=== PATIENT | female | born 1950 | race Caucasian/White ===

== ENCOUNTER → 2016-12-28 | Outpatient (CLI) | payer MEDICARE, OTHER ==
[~2016-12-28] MED LIST: Carafate1 GM PO; LIPITOR20 MG PO; MEDROL DOSEPAK4 MG PO; OMEPRAZOLE D/R20 MG PO
[2016-12-28 14:04] LABS: BASO # 0.1 10*3/uL (0.0-0.1); BASO % 0.8 % (0.0-1.0); HEMATOCRIT 37.7 % (37.0-47.0); HEMOGLOBIN 12.3 g/dl (12.0-16.0); LYMPH # 1.9 10*3/uL (1.3-4.4); LYMPH % 31.2 % (27.0-41.0); MEAN CELL VOLUME 94.7 fl (81.0-99.0); MEAN CORPUSCULAR HGB 30.9 pg (27.0-31.0); MEAN CORPUSCULAR HGB CONC 32.6 g/dl (33.0-37.0); MONO # 0.6 10*3/uL (0.1-1.0); MONO % 10.2 % (3.0-9.0); NEUT # 3.6 10*3/uL (2.3-7.9); NEUT % 57.5 % (47.0-73.0); PLATELET COUNT AUTOMATED 253 10*3/uL (130-400); RED BLOOD COUNT 3.98 10*6/uL (4.10-5.10); RED CELL DISTRI WIDTH 12.2 % (0-14.5); WHITE BLOOD COUNT 6.2 10*3/uL (4.8-10.8)
[2016-12-28 14:32] LABS: ALBUMIN 3.3 gm/dl (3.1-4.5); BILIRUBIN, DIRECT 0.2 mg/dL (0.0-0.2); TOTAL PROTEIN 7.6 gm/dL (6.4-8.2)
== END | disposition home or self-care (01) ==
LOC: LAB 13:43
PROVIDERS: Specialist
DX: K83.1 Obstruction of bile duct (principal)

== ENCOUNTER → 2017-03-21 | Outpatient (CLI) | payer MEDICARE, OTHER ==
[2017-03-21 12:06] LABS: BASO % 0.6 % (0.0-1.0); EOS % 0.1 % (1.0-4.0); HEMATOCRIT 36.8 % (37.0-47.0); HEMOGLOBIN 11.8 g/dl (12.0-16.0); LYMPH % 29.7 % (27.0-41.0); MEAN CELL VOLUME 95.6 fl (81.0-99.0); MEAN CORPUSCULAR HGB 30.6 pg (27.0-31.0); MEAN CORPUSCULAR HGB CONC 32.1 g/dl (33.0-37.0); MEAN PLATELET VOLUME 9.7 fl (9.6-12.3); MONO # 0.6 10*3/uL (0.1-1.0); MONO % 8.8 % (3.0-9.0); NEUT % 59.9 % (47.0-73.0); PLATELET COUNT AUTOMATED 320 10*3/uL (130-400); RED BLOOD COUNT 3.85 10*6/uL (4.10-5.10); RED CELL DISTRI WIDTH 13.2 % (0-14.5); WHITE BLOOD COUNT 6.7 10*3/uL (4.8-10.8)
[2017-03-21 12:35] LABS: ALKALINE PHOSPHATASE 311 U/L (45-117); BUN 11 mg/dl (7-24); CHLORIDE 103 mmol/L (98-107); CREATININE 0.69 mg/dL (0.55-1.02); POTASSIUM 3.4 mmol/L (3.5-5.1); SGOT/AST 28 IU/L (3-35); SGPT/ALT 47 U/L (12-78); SODIUM 139 mmol/L (136-145); TOTAL PROTEIN 7.3 gm/dL (6.4-8.2)
== END | disposition home or self-care (01) ==
LOC: LAB 11:44
PROVIDERS: Specialist
DX: K83.1 Obstruction of bile duct (principal)

== ENCOUNTER → 2017-04-26 | Outpatient (CLI) | payer MEDICARE, OTHER ==
[~2017-04-26] MED LIST changes: +ACTIGALL300 MG PO; +CELEXA20 MG PO; +PANTOPRAZOLE SO40 MG PO; +ZESTORETIC 10-1 EACH PO
--- NOTE | ~2017-04-26 | ST ---
[place], [place] EXERCISE STRESS TEST REPORT NAME: ALISON MATAMOROS UNIT #: [id number] ROOM: DOCTOR: MELONIE MARKHAM MD BIRTHDATE: [birth year] DOS: 04/26/2017 [facility] Baseline cardiogram normal sinus rhythm with mild ST elevation concave in the inferior leads, 0.4 mg of Lexiscan, duration of 10 seconds. No new EKG changes. The patient had no chest discomfort. Blood pressure and heart rate response was normal. Nuclear images will be reported separately. MELONIE MARKHAM MD CM:STRESS:EXERCISE STRESS TEST REPORT [id number] MELONIE MARKHAM MD
== END | disposition home or self-care (01) ==
LOC: CARD 00:54
DX: Z01.818 Encounter for other preprocedural examination (principal); R06.02 Shortness of breath

== ENCOUNTER → 2017-10-03 | Outpatient (CLI) | payer MEDICARE, OTHER ==
[2017-10-03 13:48] LABS: ALBUMIN 3.4 gm/dl (3.1-4.5); ALKALINE PHOSPHATASE 164 U/L (45-117); BILIRUBIN, DIRECT < 0.1 mg/dL (0.0-0.2); SGOT/AST 27 IU/L (3-35); SGPT/ALT 17 U/L (12-78); TOTAL PROTEIN 7.7 gm/dL (6.4-8.2)
== END | disposition home or self-care (01) ==
LOC: LAB 12:54
PROVIDERS: Physician Assistant Surgical
DX: K83.1 Obstruction of bile duct (principal)

== ENCOUNTER → 2017-11-04 | Outpatient (CLI) | payer MEDICARE, OTHER ==
[2017-11-04 11:38] LABS: BASO % 0.4 % (0.0-1.0); HEMATOCRIT 35.9 % (37.0-47.0); HEMOGLOBIN 11.6 g/dl (12.0-16.0); LYMPH # 1.7 10*3/uL (1.3-4.4); LYMPH % 24.1 % (27.0-41.0); MEAN CELL VOLUME 94.7 fl (81.0-99.0); MEAN CORPUSCULAR HGB 30.6 pg (27.0-31.0); MEAN CORPUSCULAR HGB CONC 32.3 g/dl (33.0-37.0); MEAN PLATELET VOLUME 9.7 fl (9.6-12.3); MONO # 0.4 10*3/uL (0.1-1.0); MONO % 5.2 % (3.0-9.0); PLATELET COUNT AUTOMATED 452 10*3/uL (130-400); RED BLOOD COUNT 3.79 10*6/uL (4.10-5.10); RED CELL DISTRI WIDTH 11.9 % (0-14.5); WHITE BLOOD COUNT 7.1 10*3/uL (4.8-10.8)
[2017-11-04 12:07] LABS: ALKALINE PHOSPHATASE 270 U/L (45-117); BUN 10 mg/dl (7-24); CHLORIDE 103 mmol/L (98-107); CREATININE 0.79 mg/dL (0.55-1.02); POTASSIUM 3.5 mmol/L (3.5-5.1); SGOT/AST 13 IU/L (3-35); SGPT/ALT 19 U/L (12-78); SODIUM 140 mmol/L (136-145); TOTAL PROTEIN 7.1 gm/dL (6.4-8.2)
== END | disposition home or self-care (01) ==
LOC: LAB 11:14
PROVIDERS: Physician Assistant Surgical
DX: K83.1 Obstruction of bile duct (principal)

== ENCOUNTER → 2018-04-21 | Outpatient (CLI) | payer MEDICARE, OTHER ==
[2018-04-21 14:58] LABS: BASO % 0.6 % (0.0-1.0); EOS % 0.2 % (1.0-4.0); HEMATOCRIT 40.9 % (37.0-47.0); HEMOGLOBIN 13.2 g/dl (12.0-16.0); LYMPH # 2.1 10*3/uL (1.3-4.4); LYMPH % 31.9 % (27.0-41.0); MEAN CELL VOLUME 98.1 fl (81.0-99.0); MEAN CORPUSCULAR HGB 31.7 pg (27.0-31.0); MEAN CORPUSCULAR HGB CONC 32.3 g/dl (33.0-37.0); MONO # 0.6 10*3/uL (0.1-1.0); MONO % 9.4 % (3.0-9.0); NEUT # 3.8 10*3/uL (2.3-7.9); NEUT % 57.6 % (47.0-73.0); PLATELET COUNT AUTOMATED 339 10*3/uL (130-400); RED BLOOD COUNT 4.17 10*6/uL (4.10-5.10); RED CELL DISTRI WIDTH 12.5 % (0-14.5); WHITE BLOOD COUNT 6.6 10*3/uL (4.8-10.8)
[2018-04-21 15:19] LABS: ALBUMIN 3.7 gm/dl (3.1-4.5); ALKALINE PHOSPHATASE 307 U/L (45-117); BUN 11 mg/dl (7-24); CHLORIDE 103 mmol/L (98-107); CREATININE 0.68 mg/dL (0.55-1.02); POTASSIUM 4.3 mmol/L (3.5-5.1); SGOT/AST 27 IU/L (3-35); SGPT/ALT 44 U/L (12-78); SODIUM 138 mmol/L (136-145); TOTAL PROTEIN 8.2 gm/dL (6.4-8.2)
[2018-04-22 08:07] LABS: HEPATITIS B SURFACE AG Negative (Negative); HEPATITIS C VIRUS ANTIBODY <0.1 s/co (0.0-0.9)
[2018-04-22 09:09] LABS: RHEUMATOID ARTHRITIS FACTOR >650.0 IU/mL (0.0-13.9)
[2018-04-22 21:07] LABS: CCP ANTIBODIES IGG/IGA >250 units (0-19)
[2018-04-25 07:07] LABS: TB1 Ag VALUE 0.02 IU/mL (.)
== END | disposition home or self-care (01) ==
LOC: LAB 13:31
PROVIDERS: Specialist
DX: M79.642 Pain in left hand (principal); M79.641 Pain in right hand; M79.672 Pain in left foot; M79.671 Pain in right foot; M06.4 Inflammatory polyarthropathy

== ENCOUNTER → 2019-02-01 | Outpatient (CLI) | payer MEDICARE, OTHER | END | disposition home or self-care (01) | LOC: RAD 01-19 13:30 | DX: E55.9 Vitamin D deficiency, unspecified (principal); M06.9 Rheumatoid arthritis, unspecified; Z78.0 Asymptomatic menopausal state; Z85.118 Personal history of other malignant neoplasm of bronchus and lung ==

== ENCOUNTER 2019-04-13 00:15 | Emergency (ER) | payer MEDICARE, OTHER ==
[~2019-04-13] VITALS: Ht 165.1 cm; Wt 72.6 kg
== END 2019-04-13 03:59 | disposition home or self-care (01) ==
LOC: ED 00:15
DX: B34.9 Viral infection, unspecified (principal); K21.9 Gastro-esophageal reflux disease without esophagitis; Z88.1 Allergy status to other antibiotic agents; Z88.8 Allergy status to other drugs, medicaments and biological substances; Z88.6 Allergy status to analgesic agent; Z88.7 Allergy status to serum and vaccine; Z79.899 Other long term (current) drug therapy; Z90.49 Acquired absence of other specified parts of digestive tract

== ENCOUNTER 2019-04-19 09:26 | Inpatient (IN) | payer MEDICARE, OTHER ==
[2019-04-19] VITALS (7 sets, daily range): BP systolic 101–130; BP diastolic 53–69
[~2019-04-19] VITALS: Ht 165.1 cm; Wt 74.8 kg
--- NOTE | 2019-04-19 10:52 | NUR ---
500ML NORMAL SALINE INFUSED. 500 IN.
[2019-04-19 10:53] LABS: HEMATOCRIT 35.4 % (37.0-47.0); HEMOGLOBIN 11.8 g/dl (12.0-16.0); MEAN CELL VOLUME 93.7 fl (81.0-99.0); MEAN CORPUSCULAR HGB 31.2 pg (27.0-31.0); MEAN CORPUSCULAR HGB CONC 33.3 g/dl (33.0-37.0); MEAN PLATELET VOLUME 9.6 fl (9.6-12.3); PLATELET COUNT AUTOMATED 289 10*3/uL (130-400); RED BLOOD COUNT 3.78 10*6/uL (4.10-5.10); RED CELL DISTRI WIDTH 11.8 % (0-14.5); WHITE BLOOD COUNT 14.5 10*3/uL (4.8-10.8)
[2019-04-19 11:02] LABS: ACT PARTIAL THROMBO TIME 25.1 SECONDS (20.0-32.1)
[2019-04-19 11:12] LABS: ALBUMIN 2.7 gm/dl (3.1-4.5); ALKALINE PHOSPHATASE 463 U/L (45-117); BUN 20 mg/dl (7-24); CHLORIDE 94 mmol/L (98-107); CREATININE 1.15 mg/dL (0.55-1.02); LIPASE 41 U/L (73-393); POTASSIUM 2.8 mmol/L (3.5-5.1); SGOT/AST 97 IU/L (3-35); SGPT/ALT 87 U/L (12-78); SODIUM 133 mmol/L (136-145); TOTAL PROTEIN 6.4 gm/dL (6.4-8.2)
[2019-04-19 11:14] LABS: TROPONIN I < 0.015 ng/ml (<0.045)
--- NOTE | 2019-04-19 11:17 | NUR ---
LACTIC ACID 2.9, PROVIDER MADE AWARE.
[2019-04-19 11:19] LABS: PLATELET SUFFICIENCY NORMAL (NORMAL); TOTAL CELLS COUNTED 100 #CELLS; TOXIC GRANULATION MODERATE; VACUOLATION OF NEUTROPHILS SLIGHT
--- NOTE | 2019-04-19 12:40 | NUR ---
REPORT GIVEN TO NARCISO TOWNSEND AT THIS TIME. NO CHANGE IN STATUS.
--- NOTE | 2019-04-19 12:45 | NUR ---
A 68, admitted to 4E, under the services of VINAYAK Smallwood MD with a diagnosis of severe sepsis,pneumonitis hypokalemia. Chief complaint is influenza. Patient arrived via bed from ER. Monitor applied. Initial assessment completed. Vital signs taken and recorded. VINAYAK SMALLWOOD MD notified of admission to the unit. Orders received. See assessment for past medical history, medications and allergies. Patient and/or family oriented to unit. [address] visitation policy reviewed. Clothing/patient valuable form completed. NARCISO LAIRD
--- NOTE | 2019-04-19 13:17 | NUR ---
Notified of lactic acid level. See labs. No new orders.
[2019-04-19] MEDS ORDERED: PLAQUENIL200 MG PO (13:57)
--- NOTE | 2019-04-19 13:59 | NUR ---
Spoke with pharmacist at [facility] to update med rec. Dr. Quiros notified of completion.
--- NOTE | 2019-04-19 16:10 | NUR ---
Dr. Lenz notified of lactic acid level. See labs. No new orders.
--- NOTE | 2019-04-19 18:10 | NUR ---
Notified of lactic acid level. See labs. No new orders.
[2019-04-19 21:50] LABS: BILIRUBIN 1+ (NEGATIVE); BLOOD TRACE-INTACT (NEGATIVE); CLARITY CLEAR (CLEAR); COLOR YELLOW (YELLOW); GLUCOSE NEGATIVE (NEGATIVE); KETONE NEGATIVE (NEGATIVE); LEUKO ESTERASE TRACE (NEGATIVE); NITRITE POSITIVE (NEGATIVE); UROBILINOGEN 0.2 E.U./dl (0.2-1.0)
[2019-04-19 21:58] LABS: BACTERIA 2+
[2019-04-19 21:59] LABS: EPITHELIAL CELLS 0-2
[2019-04-20] VITALS: BP 117/69
--- NOTE | 2019-04-20 00:01 | NUR ---
DR. GALLARDO NOTIFIED OF POS BC FOR GR NEG BACILLI.
[2019-04-20 06:31] LABS: HEMATOCRIT 29.5 % (37.0-47.0); MEAN CELL VOLUME 93.7 fl (81.0-99.0); MEAN CORPUSCULAR HGB 31.7 pg (27.0-31.0); MEAN CORPUSCULAR HGB CONC 33.9 g/dl (33.0-37.0); MEAN PLATELET VOLUME 10.3 fl (9.6-12.3); PLATELET COUNT AUTOMATED 236 10*3/uL (130-400); RED BLOOD COUNT 3.15 10*6/uL (4.10-5.10); RED CELL DISTRI WIDTH 12.2 % (0-14.5); WHITE BLOOD COUNT 27.8 10*3/uL (4.8-10.8)
[2019-04-20 06:47] LABS: ALBUMIN 2.3 gm/dl (3.1-4.5); BUN 16 mg/dl (7-24); CHLORIDE 105 mmol/L (98-107); CHOLESTEROL 133 mg/dL (<200); CREATININE 0.71 mg/dL (0.55-1.02); HDL CHOLESTEROL 11 mg/dl (40-60); LDL CHOLESTEROL 100 mg/dL (9-159); PHOSPHOROUS 2.1 mg/dL (2.5-4.9); POTASSIUM 3.4 mmol/L (3.5-5.1); SGOT/AST 59 IU/L (3-35); SGPT/ALT 71 U/L (12-78); SODIUM 137 mmol/L (136-145); TOTAL PROTEIN 5.7 gm/dL (6.4-8.2); TRIGLYCERIDES 112 mg/dl (<150); VLDL CHOLESTEROL 22 mg/dL (6-40)
[2019-04-20 06:53] LABS: ALKALINE PHOSPHATASE 285 U/L (45-117)
[2019-04-20 07:07] LABS: VITAMIN D, 25-HYDROXY 19.8 ng/mL (30-100)
[2019-04-20 07:16] LABS: TOTAL CELLS COUNTED 100 #CELLS
[2019-04-20 07:17] LABS: PLATELET SUFFICIENCY NORMAL (NORMAL); TOXIC GRANULATION SLIGHT
--- NOTE | 2019-04-20 09:00 | NUR ---
Rouge Sifter in to talk to patient. Patient states lives at home alone with her family checking in on her. There are 14 steps in the home. Physician: Dr. Wright [facility] Home health services: none Patient's level of ADLs: INDEPENDENT Patient has working utilities: yes DME: has everything she could need from her who 3 years ago Follow-up physician's appointment after d/c: she prefers to make her own follow up appt after discharge Does patient want to access PORTAL?: no Discharge plan discussed with patient. She lives at home alone with her family checking in on her. She does have a stair lift for the 14 steps if needed. Discussed home health care services and she denies any home needs at this time. When medically stable she will be discharged to home. Her step daughter or granddaughter will provide transportation on discharge. She is on rocephin, zithromax and solumedrol. BC show GNB. +UA, UC pending. MARCELA POWELL
[2019-04-20 10:09] VITALS: BP 118/68
--- NOTE | 2019-04-20 10:11 | NUR ---
Notified of patients c/o pain under right breast. Patient concerned that its her bile duct again. Physician to follow up at bedside.
[2019-04-20 12:00] VITALS: BP 137/69
--- NOTE | 2019-04-20 15:37 | NUR ---
Notified of lactic acid level. See labs. No new orders.
[2019-04-20 16:00] VITALS: BP 116/54; BP 124/71
--- NOTE | 2019-04-20 17:40 | NUR ---
Message left with answering service regarding consult for positive blood cultures.
--- NOTE | 2019-04-20 17:56 | NUR ---
Dr. Jacobs returned call. See new orders.
--- NOTE | 2019-04-20 18:50 | NUR ---
Notified Dr. Jacobs of patients allergy to Zosyn. See new orders.
[2019-04-20 20:00] VITALS: BP 138/70
[2019-04-21] VITALS: BP 138/76
--- NOTE | 2019-04-21 02:00 | NUR ---
24 HR chart check completed.
--- NOTE | 2019-04-21 04:55 | NUR ---
Patient sleeping. Respirations relaxed and easy. Siderails up . [place] on. VLADIMIR DUNHAM
[2019-04-21 07:10] LABS: HEMATOCRIT 31.4 % (37.0-47.0); HEMOGLOBIN 10.4 g/dl (12.0-16.0); MEAN CELL VOLUME 95.7 fl (81.0-99.0); MEAN CORPUSCULAR HGB 31.7 pg (27.0-31.0); MEAN CORPUSCULAR HGB CONC 33.1 g/dl (33.0-37.0); MEAN PLATELET VOLUME 10.8 fl (9.6-12.3); PLATELET COUNT AUTOMATED 237 10*3/uL (130-400); RED BLOOD COUNT 3.28 10*6/uL (4.10-5.10); RED CELL DISTRI WIDTH 12.3 % (0-14.5); WHITE BLOOD COUNT 22.2 10*3/uL (4.8-10.8)
[2019-04-21 07:37] LABS: BUN 17 mg/dl (7-24); CHLORIDE 105 mmol/L (98-107); SODIUM 136 mmol/L (136-145)
[2019-04-21 07:50] LABS: POTASSIUM 4.5 mmol/L (3.5-5.1)
[2019-04-21 08:00] VITALS: BP 135/78
[2019-04-21 08:14] LABS: PLATELET SUFFICIENCY NORMAL (NORMAL); TOTAL CELLS COUNTED 100 #CELLS
[2019-04-21 12:00] VITALS: BP 125/84
[2019-04-21 16:00] VITALS: BP 153/98
--- NOTE | 2019-04-21 18:38 | NUR ---
CALLED DR. NUGENT TO INFORM HIM OF ID'S RECOMMENDATION WITH NO ANSWER. MESSAGE LEFT TO RETURN CALL.
--- NOTE | 2019-04-21 19:30 | NUR ---
IN TO SEE PT. ASSESSMENT COMPLETED AT THIS TIME. PT STATED ALL HER CONCERNS WITH ME FROM THE RESULTS OF HER CT. ANSWERED THE PTS QUESTIONS AND CONERNS BEST I COULD. PT HAD NO COMPLAINTS AND STATED SHE DID NOT NEED ANYTHING AT THIS TIME. NO SIGNS OF DISTRESS NOTED. RESPIRATIONS EASY AND REGULAR. CALL LIGHT WITHIN REACH. WILL CONTINUE TO MONITOR.
[2019-04-21 20:00] VITALS: BP 139/68
--- NOTE | 2019-04-21 20:38 | NUR ---
NOTIFIED OF NEW CONSULT. NEW ORDERS RECEIVED. CALL IN THE AM WITH LAB RESULTS.
[2019-04-22] VITALS: BP 125/66
--- NOTE | 2019-04-22 02:22 | NUR ---
DR. NUGENT NOTIFIED OF POSITIVE AEROBIC BLOOD CULTURE FOR GRAM NEGATIVE BACILLI.
--- NOTE | 2019-04-22 02:54 | NUR ---
24 HR chart check completed.
--- NOTE | 2019-04-22 06:00 | NUR ---
PT TRANSPORTED TO 5TH FLOOR WITH ALL HER BELONGINGS AT THIS TIME. REPORT GIVEN TO NURSE KRISTIAN GUY.
[2019-04-22 07:43] LABS: ALBUMIN 2.8 gm/dl (3.1-4.5); BUN 14 mg/dl (7-24); CHLORIDE 102 mmol/L (98-107); CREATININE 0.64 mg/dL (0.55-1.02); POTASSIUM 3.9 mmol/L (3.5-5.1); SGOT/AST 13 IU/L (3-35); SGPT/ALT 48 U/L (12-78); SODIUM 133 mmol/L (136-145)
[2019-04-22 07:45] LABS: ALKALINE PHOSPHATASE 273 U/L (45-117); TOTAL PROTEIN 6.3 gm/dL (6.4-8.2)
[2019-04-22 08:00] VITALS: BP 150/72
--- NOTE | 2019-04-22 08:00 | NUR ---
PT SITTING UP IN BED. RESP-EASY AND REGULAR. NO C/O AT THIS TIME. CALL LIGHT IN REACH. SEE SHIFT ASSESSMENT.
[2019-04-22 08:36] LABS: HEMATOCRIT 34.2 % (37.0-47.0); HEMOGLOBIN 11.6 g/dl (12.0-16.0); MEAN CELL VOLUME 93.4 fl (81.0-99.0); MEAN CORPUSCULAR HGB 31.7 pg (27.0-31.0); MEAN CORPUSCULAR HGB CONC 33.9 g/dl (33.0-37.0); MEAN PLATELET VOLUME 10.7 fl (9.6-12.3); PLATELET COUNT AUTOMATED 279 10*3/uL (130-400); RED BLOOD COUNT 3.66 10*6/uL (4.10-5.10); RED CELL DISTRI WIDTH 12.4 % (0-14.5); WHITE BLOOD COUNT 14.4 10*3/uL (4.8-10.8)
[2019-04-22 09:17] LABS: PLATELET SUFFICIENCY NORMAL (NORMAL); TOTAL CELLS COUNTED 100 #CELLS
[2019-04-22 12:00] VITALS: BP 156/84
--- NOTE | 2019-04-22 12:45 | NUR ---
PT SITTING UP AT SIDE OF BED. TOLERATING IV ANTIBIOTIC. NO C/O AT THIS TIME. CALL LIGHT IN REACH.
[2019-04-22 16:00] VITALS: BP 139/65
--- NOTE | 2019-04-22 16:34 | NUR ---
PT SITTING UP IN BED. RESP-EASY AND REGULAR. NO C/O AT THIS TIME. CALL LIGHT IN REACH. SEE SHIFT ASSESSMENT.
--- NOTE | 2019-04-22 18:00 | NUR ---
AMBULATORY IN HALLWAYS. NO C/O AT THIS TIME.
--- NOTE | 2019-04-22 19:45 | NUR ---
PATIENT LAYING IN BED WATCHING TV. IV MERREM RUNNING PER ORDER. DENIES COMPLAINTS OF PAIN OR DISCOMFORT AT THIS TIME. RESPIRATIONS REGULAR AND NON-LABORED. LUNGS DIMINISHED. BS NORMACTIVE. WILL CONTINUE TO MONITOR. CALL LIGHT IN REACH.
[2019-04-22 20:00] VITALS: BP 146/74
[2019-04-23] VITALS: BP 150/81
[2019-04-23 08:00] VITALS: BP 126/60
--- NOTE | 2019-04-23 08:30 | NUR ---
PT SITTING UP AT SIDE OF BED. TOLERATED ROUTINE MEDS WITH NO PROBLEM. NO C/O AT THIS TIME. DR. BAKER CALLED ORDERS TAKEN AND REVIEWED. CALL LIGHT IN REACH. SEE SHIFT ASSESSMENT.
[2019-04-23 08:52] LABS: HEMATOCRIT 36.7 % (37.0-47.0); HEMOGLOBIN 12.4 g/dl (12.0-16.0); MEAN CELL VOLUME 93.6 fl (81.0-99.0); MEAN CORPUSCULAR HGB 31.6 pg (27.0-31.0); MEAN CORPUSCULAR HGB CONC 33.8 g/dl (33.0-37.0); MEAN PLATELET VOLUME 9.8 fl (9.6-12.3); PLATELET COUNT AUTOMATED 291 10*3/uL (130-400); RED BLOOD COUNT 3.92 10*6/uL (4.10-5.10); RED CELL DISTRI WIDTH 12.3 % (0-14.5); WHITE BLOOD COUNT 10.6 10*3/uL (4.8-10.8)
[2019-04-23 09:07] LABS: ALBUMIN 2.8 gm/dl (3.1-4.5); ALKALINE PHOSPHATASE 239 U/L (45-117); BUN 16 mg/dl (7-24); CHLORIDE 98 mmol/L (98-107); CREATININE 0.64 mg/dL (0.55-1.02); POTASSIUM 4.2 mmol/L (3.5-5.1); SGOT/AST 17 IU/L (3-35); SGPT/ALT 39 U/L (12-78); SODIUM 128 mmol/L (136-145); TOTAL PROTEIN 6.1 gm/dL (6.4-8.2)
[2019-04-23 09:14] LABS: PLATELET SUFFICIENCY NORMAL (NORMAL); TOTAL CELLS COUNTED 100 #CELLS
--- NOTE | 2019-04-23 10:30 | NUR ---
Public Speaking Instructor in to see patient. No new needs or request at this time. She denies any home needs. When medically stable she will be discharged to home. +BC. IV antibiotics. Dr. Griffin and ID consulted.
--- NOTE | 2019-04-23 10:37 | NUR ---
PT RESTING IN BED. NO C/O AT THIS TIME. CALL LIGHT IN REACH.
[2019-04-23 12:00] VITALS: BP 111/59
[2019-04-23 16:00] VITALS: BP 122/68
--- NOTE | 2019-04-23 16:00 | NUR ---
SITTING UP AT BEDSIDE TALKING ON CELL PHONE. PT. VOICES NO C/O AT THIS TIME; NO DISTRESS NOTED.
--- NOTE | 2019-04-23 18:00 | NUR ---
PT. VOICES NO C/O; CALL LIGHT WITHIN REACH.
[2019-04-23 20:00] VITALS: BP 129/63
--- NOTE | 2019-04-23 20:26 | NUR ---
PATIENT RESTING IN BED WATCHING TV. NS FLUIDS STARTED AT 50CC/HR PER DR. BERGER. PATIENT UPSET D/T NOT BEING ABLE TO BE DISCHARGED. IV MERREM STARTED AT THIS TIME. DENIES COMPLAINTS OF PAIN OR DISCOMFORT. RESPIRATIONS REGULAR AND NON-LABORED ON ROOM AIR. WILL CONTINUE TO MONITOR. CALL LIGHT IN REACH.
--- NOTE | 2019-04-23 20:38 | NUR ---
PT REFUSED BREATHING TREATMENT. INSTRUCTED ON USE OF FLUTTER VALVE. DEMONSTRATED PROPER USE AND GOOD EFFORT, TOLD TO USE 12 BREATHES EVERY HOUR WHILE AWAKE.
[2019-04-24] VITALS: BP 137/62
[2019-04-24 07:15] LABS: HEMATOCRIT 33.8 % (37.0-47.0); MEAN CELL VOLUME 94.4 fl (81.0-99.0); MEAN CORPUSCULAR HGB 30.7 pg (27.0-31.0); MEAN CORPUSCULAR HGB CONC 32.5 g/dl (33.0-37.0); PLATELET COUNT AUTOMATED 278 10*3/uL (130-400); RED BLOOD COUNT 3.58 10*6/uL (4.10-5.10); RED CELL DISTRI WIDTH 12.1 % (0-14.5); WHITE BLOOD COUNT 11.8 10*3/uL (4.8-10.8)
[2019-04-24 07:46] LABS: ALBUMIN 2.3 gm/dl (3.1-4.5); ALKALINE PHOSPHATASE 189 U/L (45-117); BUN 15 mg/dl (7-24); CHLORIDE 100 mmol/L (98-107); CREATININE 0.68 mg/dL (0.55-1.02); POTASSIUM 3.9 mmol/L (3.5-5.1); SGOT/AST 15 IU/L (3-35); SGPT/ALT 32 U/L (12-78); SODIUM 133 mmol/L (136-145); TOTAL PROTEIN 5.1 gm/dL (6.4-8.2)
[2019-04-24 08:00] VITALS: BP 134/69
--- NOTE | 2019-04-24 08:00 | NUR ---
SITTING UP AT SIDE OF BED. RESP-EASY AND REGULAR. IVF INFUSING WITH NO PROBLEM. CALL LIGHT IN REACH. SEE SHIFT ASSESSMENT.
[2019-04-24 08:44] LABS: PLATELET SUFFICIENCY NORMAL (NORMAL)
[2019-04-24 08:46] LABS: TOTAL CELLS COUNTED 100 #CELLS
--- NOTE | 2019-04-24 09:42 | NUR ---
CALLED DR. MURRAY MADE AWARE OF +BC.
--- NOTE | 2019-04-24 10:30 | NUR ---
Transportation Security Screener in to see patient. Pt states she is waiting to be discharged. She is refusing to have a scope done by Dr. Griffin and would like to see her routine physician in [place] regarding a scope. She states if she gets home and she develops pain she will go to [place] and will be able to see her normal physicians. When medically stable she will be discharged to home. She denies any home needs at this time.
[2019-04-24 12:00] VITALS: BP 123/66
--- NOTE | 2019-04-24 12:00 | NUR ---
TOLERATED ROUTINE MED WITH NO PROBLEM. NO C/O AT THIS TIME. CALL LIGHT IN REACH.
--- NOTE | 2019-04-24 14:51 | NUR ---
Admissions Supervisor in to see patient. She states she is now going to have the ERCP tomorrow as she has talked her physician in [place] and he states it would be a good idea to have it done at this time.
--- NOTE | 2019-04-24 15:43 | NUR ---
CALLED DR. BERGER MADE AWARE PT IS WILLING TO DO ERCP TOMORROW.
[2019-04-24 16:00] VITALS: BP 129/69
--- NOTE | 2019-04-24 17:00 | NUR ---
PT RESTING IN BED. NO C/O AT THIS TIME. CALL LIGHT IN REACH. SEE SHIFT ASSESSMENT.
--- NOTE | 2019-04-24 19:00 | NUR ---
PT UNHOOKED FROM IVF TO WALK HALLWAYS FOR A LITTLE BIT. NO C/O AT THIS TIME. CALL LIGHT IN REACH.
[2019-04-24 20:00] VITALS: BP 130/60
--- NOTE | 2019-04-24 21:30 | NUR ---
IV started left forearm with #22 angiocath after 1 attempts. The IV site was prepped with Chloraprep. Heparin lock attached. Sterile dressing applied. Patient tolerated precedure well. Procedure performed according to [facility] policy & procedure. LINH CURIEL
--- NOTE | 2019-04-24 22:35 | NUR ---
PT RESTING IN BED. NO C/O AT THIS TIME. IVF INFUSING WITHNO PROBLEM. CALL LIGHT IN REACH.
[2019-04-25] VITALS (9 sets, daily range): BP systolic 119–154; BP diastolic 59–81
[2019-04-25 07:07] LABS: ALBUMIN 2.5 gm/dl (3.1-4.5); BUN 12 mg/dl (7-24); CHLORIDE 101 mmol/L (98-107); CREATININE 0.69 mg/dL (0.55-1.02); PHOSPHOROUS 3.3 mg/dL (2.5-4.9); POTASSIUM 3.9 mmol/L (3.5-5.1); SODIUM 135 mmol/L (136-145)
[2019-04-25 07:13] LABS: HEMATOCRIT 35.4 % (37.0-47.0); HEMOGLOBIN 11.6 g/dl (12.0-16.0); MEAN CELL VOLUME 93.4 fl (81.0-99.0); MEAN CORPUSCULAR HGB 30.6 pg (27.0-31.0); MEAN CORPUSCULAR HGB CONC 32.8 g/dl (33.0-37.0); MEAN PLATELET VOLUME 10.2 fl (9.6-12.3); PLATELET COUNT AUTOMATED 338 10*3/uL (130-400); RED BLOOD COUNT 3.79 10*6/uL (4.10-5.10); RED CELL DISTRI WIDTH 12.2 % (0-14.5); WHITE BLOOD COUNT 12.2 10*3/uL (4.8-10.8)
--- NOTE | 2019-04-25 09:00 | NUR ---
Sales Representative Wire Rope in to see patient. No new needs or request at this time. She denies any home needs. When medically stable she will be discharged to home. She is scheduled for an ERCP with Dr. Griffin today. ID following with plans for discharge on po antibiotics.
[2019-04-25 09:38] LABS: TOTAL CELLS COUNTED 100 #CELLS
[2019-04-25 09:39] LABS: PLATELET SUFFICIENCY NORMAL (NORMAL)
--- NOTE | 2019-04-25 17:45 | NUR ---
PT RETURNED TO FLOOR FROM SURGERY
--- NOTE | 2019-04-25 17:52 | NUR ---
PER DR BERGER PT MAY HAVE SOFT DIET.
[2019-04-26] VITALS: BP 120/60
--- NOTE | 2019-04-26 00:30 | NUR ---
PATIENT STATED SHE ASKED PREVIOUS NURSE TO TAKE HER OFF IV FLUIDS AND THE NURSE DID. WHEN ASKED IF I COULD PUT HER BACK ON SHE SAID "NO I DONT WANT THEM RIGHT NOW." RATIONALE EXPLAINED. PATIENT STILL REFUSING. PATIENT STATED I COULD PUT THEM BACK ON WHEN I HUNG NEXT SCHEDULED DOSE OF ABX.
--- NOTE | 2019-04-26 00:44 | NUR ---
Patient resting quietly with no c/o discomfort. Respirations easy and regular. Vital signs stable. No overt distress. RICHI NORWOOD
--- NOTE | 2019-04-26 04:00 | NUR ---
IV FLUIDS CURRENTLY RUNNING AGAIN.
[2019-04-26 08:00] VITALS: BP 139/69
--- NOTE | 2019-04-26 09:00 | NUR ---
Flat Lock Operator in to see patient. No new needs or request at this time. She denies any home needs. When medically stable she will be discharged to home. ID following, plan is to discharge home on po antibiotics.
--- NOTE | 2019-04-26 10:00 | NUR ---
Per multidisciplinary discharge planning meeting plan is to discharge patient home today.
--- NOTE | 2019-04-26 11:47 | NUR ---
PER DR MURRAY D/C BREATHING TREATMENTS AND IVF
[2019-04-26 12:00] VITALS: BP 131/74
[2019-04-26 16:00] VITALS: BP 136/71
--- NOTE | 2019-04-26 17:45 | NUR ---
DR BERGER NOTIFIED OF [facility] RESULTS. NO NEW ORDERS OTHER THAN TO CHECK LABS TOMORROW.
[2019-04-26 20:00] VITALS: BP 137/68
--- NOTE | 2019-04-26 21:13 | NUR ---
DR. GONZALES INFORMED THAT PATIENT HAS NOT RECIEVED PROTONIX D/T NPO STATUS FOR TESTIN THE PAST 2 DAYS. PATIENT IS NOW COMPLAINING OF INDIGESTION REQUESTING TUMS. STATED HE WILL PLACE TUMS ORDER AND STATED TO PLACE ORDER FOR X1 PROTONIX 40MG NOW.
[2019-04-27] VITALS: BP 133/70
[2019-04-27 07:22] LABS: ALBUMIN 2.5 gm/dl (3.1-4.5); ALKALINE PHOSPHATASE 253 U/L (45-117); BUN 10 mg/dl (7-24); CHLORIDE 104 mmol/L (98-107); CREATININE 0.57 mg/dL (0.55-1.02); POTASSIUM 3.7 mmol/L (3.5-5.1); SGOT/AST 50 IU/L (3-35); SGPT/ALT 100 U/L (12-78); SODIUM 137 mmol/L (136-145); TOTAL PROTEIN 5.1 gm/dL (6.4-8.2)
[2019-04-27 08:00] VITALS: BP 137/71
--- NOTE | 2019-04-27 09:00 | NUR ---
Public Relations Officer in to see patient. She is ambulating in the hallway without distress noted. Discussed any home needs and she continues to deny any home needs. When medically stable she will be discharged to home on po antibiotics per ID.
[2019-04-27 09:23] LABS: BASO % 0.1 % (0.0-1.0); HEMOGLOBIN 10.9 g/dl (12.0-16.0); LYMPH # 2.4 10*3/uL (1.3-4.4); LYMPH % 28.6 % (27.0-41.0); MEAN CELL VOLUME 95.1 fl (81.0-99.0); MEAN CORPUSCULAR HGB 31.4 pg (27.0-31.0); MEAN PLATELET VOLUME 10.5 fl (9.6-12.3); MONO # 0.8 10*3/uL (0.1-1.0); MONO % 9.4 % (3.0-9.0); NEUT # 5.1 10*3/uL (2.3-7.9); NEUT % 59.8 % (47.0-73.0); PLATELET COUNT AUTOMATED 362 10*3/uL (130-400); RED BLOOD COUNT 3.47 10*6/uL (4.10-5.10); RED CELL DISTRI WIDTH 12.5 % (0-14.5); WHITE BLOOD COUNT 8.4 10*3/uL (4.8-10.8)
--- NOTE | 2019-04-27 09:41 | NUR ---
SPOKE TO DR BERGER REGARDING LABS THAT HE REQUESTED AND HE STATED THAT HE WILL SEE HER LATER.
[2019-04-27 12:00] VITALS: BP 123/54
[2019-04-27 16:00] VITALS: BP 143/66
[2019-04-27 20:00] VITALS: BP 138/71
--- NOTE | 2019-04-27 21:00 | NUR ---
Patient resting quietly with no c/o discomfort. Respirations easy and regular. Vital signs stable. No overt distress. KELLI BRICEÑO
--- NOTE | 2019-04-27 21:30 | NUR ---
ANKITA FROM [facility] STATED THAT NO BED WILL BE AVAILABLE TONIGHT AND WILL CALL IN AM. STATED ACCEPTING DOCTOR IS MADDY. PHONE NUMBER [phone]
[2019-04-28] VITALS: BP 128/85; BP 152/60
--- NOTE | 2019-04-28 01:42 | NUR ---
MADE AWARE THAT PATIENT IS HAVING SEVERE UPPER ABD PAIN. MORPHINE HAS FALLEN OFF EMAR. STATED SHE WILL LOOK AT ORDERS.
--- NOTE | 2019-04-28 01:55 | NUR ---
PATIENT MEDICATED WITH MORPHINE FOR C/O /10 UPPER ABDOMEN PAIN. WILL MONITOR
--- NOTE | 2019-04-28 02:55 | NUR ---
MORPHINE APPEARS EFFECTIVE. PATIENT RESTING QUIETLY, EYES CLSOED. NO DISTRESS NOTED. CALLL IGHT WITHIN REACH
[2019-04-28 08:00] VITALS: BP 116/64
--- NOTE | 2019-04-28 08:30 | NUR ---
PATIENT RESTING QUIETLY IN BED. NO DISTRESS NOTED. PT DENIES ANY PAIN/DISCOMFORT AT THIS TIME. AWAITING BED FOR TRANSFER PER ORDER. WILL CONTINUE TO MONITOR. NO VOICED COMPLAINTS. CALL LIGHT WITHIN REACH. VSS.
[2019-04-28 12:00] VITALS: BP 123/56
--- NOTE | 2019-04-28 15:22 | NUR ---
[facility] CALLED AT THIS TIME REGARDING BED ASSIGNMENT. STILL WAITING FOR AVAILABLE BED.
[2019-04-28 16:00] VITALS: BP 123/55
--- NOTE | 2019-04-28 18:52 | NUR ---
REPORT GIVEN TO NURSE AT [facility].
--- NOTE | 2019-04-28 20:05 | NUR ---
LIFE TEAM TO P/U. REPORT GIVEN.
--- NOTE | 2019-04-28 20:06 | NUR ---
Discharge instructions reviewed with patient. Patient receptive and verbalizes understanding. Written instructions given to patient. KELLI BRICEÑO
== END 2019-04-28 20:06 | disposition short-term general hospital (02) | DRG 871 ==
LOC: ED 09:26 → 4E 11:34 → 5E 11:34 → EDHOLD 11:34 → 4E 11:50 → 5E 04-22 04:56
PROVIDERS: Internal Medicine; Internal Medicine Gastroenterology; Internal Medicine Nephrology; Nurse Practitioner Family; ADMIT Internal Medicine
PROC: 0F798ZZ Dilation of Common Bile Duct, Via Natural or Artificial Opening Endoscopic (ICD-10-PCS; principal; 2019-04-19)
DX: A41.59 Other Gram-negative sepsis (principal); J18.9 Pneumonia, unspecified organism; N17.0 Acute kidney failure with tubular necrosis; E43 Unspecified severe protein-calorie malnutrition; K83.1 Obstruction of bile duct; E87.1 Hypo-osmolality and hyponatremia; R65.20 Severe sepsis without septic shock; E87.6 Hypokalemia; D64.9 Anemia, unspecified; F32.9 Major depressive disorder, single episode, unspecified; F41.0 Panic disorder [episodic paroxysmal anxiety]; E78.5 Hyperlipidemia, unspecified; E55.9 Vitamin D deficiency, unspecified; E53.8 Deficiency of other specified B group vitamins; B96.1 Klebsiella pneumoniae [K. pneumoniae] as the cause of diseases classified elsewhere; Z68.27 Body mass index [BMI] 27.0-27.9, adult; Z88.6 Allergy status to analgesic agent; Z88.1 Allergy status to other antibiotic agents; Z88.7 Allergy status to serum and vaccine; Z88.8 Allergy status to other drugs, medicaments and biological substances; Z90.49 Acquired absence of other specified parts of digestive tract; Z87.891 Personal history of nicotine dependence; Z85.118 Personal history of other malignant neoplasm of bronchus and lung; Z83.3 Family history of diabetes mellitus; Z79.899 Other long term (current) drug therapy

== ENCOUNTER 2019-06-18 12:39 | Emergency (ER) | payer MEDICARE, OTHER ==
[~2019-06-18 12:39] MED LIST changes: +PLAQUENIL200 MG PO
[2019-06-18 13:43] LABS: BASO # 0.1 10*3/uL (0.0-0.1); BASO % 0.9 % (0.0-1.0); EOS # 0.3 10*3/uL (0.0-0.4); EOS % 3.1 % (1.0-4.0); HEMATOCRIT 34.7 % (37.0-47.0); HEMOGLOBIN 11.5 g/dl (12.0-16.0); LYMPH # 1.7 10*3/uL (1.3-4.4); LYMPH % 15.8 % (27.0-41.0); MEAN CELL VOLUME 93.8 fl (81.0-99.0); MEAN CORPUSCULAR HGB 31.1 pg (27.0-31.0); MEAN CORPUSCULAR HGB CONC 33.1 g/dl (33.0-37.0); MEAN PLATELET VOLUME 9.2 fl (9.6-12.3); MONO # 0.8 10*3/uL (0.1-1.0); MONO % 7.6 % (3.0-9.0); NEUT # 7.7 10*3/uL (2.3-7.9); PLATELET COUNT AUTOMATED 646 10*3/uL (130-400); RED CELL DISTRI WIDTH 11.9 % (0-14.5); WHITE BLOOD COUNT 10.6 10*3/uL (4.8-10.8)
[2019-06-18 13:54] LABS: ACT PARTIAL THROMBO TIME 26.4 SECONDS (20.0-32.1)
[2019-06-18 13:58] LABS: ALBUMIN 2.8 gm/dl (3.1-4.5); ALKALINE PHOSPHATASE 301 U/L (45-117); BUN 12 mg/dl (7-24); CHLORIDE 93 mmol/L (98-107); CREATININE 0.82 mg/dL (0.55-1.02); LIPASE 95 U/L (73-393); POTASSIUM 3.1 mmol/L (3.5-5.1); SGOT/AST 21 IU/L (3-35); SGPT/ALT 18 U/L (12-78); SODIUM 132 mmol/L (136-145); TOTAL PROTEIN 7.4 gm/dL (6.4-8.2)
[2019-06-18 14:18] LABS: BILIRUBIN NEGATIVE (NEGATIVE); BLOOD TRACE-INTACT (NEGATIVE); CLARITY CLEAR (CLEAR); COLOR YELLOW (YELLOW); GLUCOSE NEGATIVE (NEGATIVE); KETONE NEGATIVE (NEGATIVE); LEUKO ESTERASE 3+ (NEGATIVE); NITRITE NEGATIVE (NEGATIVE); PH 6.5 (5.0-9.0); UROBILINOGEN 0.2 E.U./dl (0.2-1.0)
[2019-06-18 14:19] LABS: BACTERIA 1+
== END 2019-06-18 17:17 | disposition left against medical advice (07) ==
LOC: ED 12:39
PROVIDERS: Emergency Medicine
DX: J90 Pleural effusion, not elsewhere classified (principal); R10.11 Right upper quadrant pain; R06.09 Other forms of dyspnea; E78.5 Hyperlipidemia, unspecified; Z87.891 Personal history of nicotine dependence; Z79.899 Other long term (current) drug therapy; Z88.6 Allergy status to analgesic agent; Z88.1 Allergy status to other antibiotic agents; Z90.49 Acquired absence of other specified parts of digestive tract

== ENCOUNTER 2019-07-04 16:59 | Emergency (ER) | payer MEDICARE, OTHER ==
[~2019-07-04] VITALS: Wt 71.2 kg
[2019-07-04 17:38] LABS: HEMATOCRIT 36.3 % (37.0-47.0); MEAN CELL VOLUME 92.1 fl (81.0-99.0); MEAN CORPUSCULAR HGB 30.5 pg (27.0-31.0); MEAN CORPUSCULAR HGB CONC 33.1 g/dl (33.0-37.0); MEAN PLATELET VOLUME 9.3 fl (9.6-12.3); PLATELET COUNT AUTOMATED 425 10*3/uL (130-400); RED BLOOD COUNT 3.94 10*6/uL (4.10-5.10); RED CELL DISTRI WIDTH 12.1 % (0-14.5); WHITE BLOOD COUNT 15.8 10*3/uL (4.8-10.8)
[2019-07-04 17:50] LABS: ACT PARTIAL THROMBO TIME 20.1 SECONDS (20.0-32.1)
[2019-07-04 17:53] LABS: ALBUMIN 2.9 gm/dl (3.1-4.5); ALKALINE PHOSPHATASE 320 U/L (45-117); BUN 11 mg/dl (7-24); CHLORIDE 99 mmol/L (98-107); CREATININE 0.86 mg/dL (0.55-1.02); LIPASE 79 U/L (73-393); POTASSIUM 3.5 mmol/L (3.5-5.1); SGOT/AST 76 IU/L (3-35); SGPT/ALT 55 U/L (12-78); SODIUM 135 mmol/L (136-145); TOTAL PROTEIN 6.7 gm/dL (6.4-8.2)
[2019-07-04 17:57] LABS: TOTAL CELLS COUNTED 100 #CELLS
[2019-07-04 17:58] LABS: PLATELET SUFFICIENCY HIGH (NORMAL)
[2019-07-04 18:06] LABS: TROPONIN I 0.066 ng/ml (<0.045)
[2019-07-04 21:15] LABS: CLARITY CLEAR (CLEAR); COLOR YELLOW (YELLOW)
[2019-07-04 21:16] LABS: BILIRUBIN NEGATIVE (NEGATIVE); BLOOD TRACE-INTACT (NEGATIVE); GLUCOSE NEGATIVE (NEGATIVE); KETONE NEGATIVE (NEGATIVE); LEUKO ESTERASE TRACE (NEGATIVE); NITRITE NEGATIVE (NEGATIVE); PH 7.5 (5.0-9.0); SPECIFIC GRAVITY 1.005 (1.005-1.030); UROBILINOGEN 0.2 E.U./dl (0.2-1.0)
[2019-07-04 21:23] LABS: BACTERIA 1+
== END 2019-07-05 01:37 | disposition short-term general hospital (02) ==
LOC: ED 16:59
PROVIDERS: Emergency Medicine
DX: T85.520A Displacement of bile duct prosthesis, initial encounter (principal); R11.2 Nausea with vomiting, unspecified; K21.9 Gastro-esophageal reflux disease without esophagitis; E78.00 Pure hypercholesterolemia, unspecified; E78.5 Hyperlipidemia, unspecified; Z88.8 Allergy status to other drugs, medicaments and biological substances; Z79.899 Other long term (current) drug therapy; Z88.5 Allergy status to narcotic agent; Z90.49 Acquired absence of other specified parts of digestive tract; Y92.89 Other specified places as the place of occurrence of the external cause

== ENCOUNTER 2019-08-25 12:39 | Emergency (ER) | payer MEDICARE, OTHER ==
[~2019-08-25] VITALS: Ht 165.1 cm; Wt 65.8 kg
[2019-08-25 13:38] LABS: BASO % 0.7 % (0.0-1.0); EOS # 0.2 10*3/uL (0.0-0.4); EOS % 2.9 % (1.0-4.0); HEMATOCRIT 38.2 % (37.0-47.0); LYMPH # 1.9 10*3/uL (1.3-4.4); LYMPH % 34.9 % (27.0-41.0); MEAN CELL VOLUME 87.6 fl (81.0-99.0); MEAN CORPUSCULAR HGB 29.6 pg (27.0-31.0); MEAN CORPUSCULAR HGB CONC 33.8 g/dl (33.0-37.0); MEAN PLATELET VOLUME 9.2 fl (9.6-12.3); MONO # 0.4 10*3/uL (0.1-1.0); MONO % 7.7 % (3.0-9.0); NEUT # 2.9 10*3/uL (2.3-7.9); NEUT % 53.6 % (47.0-73.0); PLATELET COUNT AUTOMATED 326 10*3/uL (130-400); RED BLOOD COUNT 4.36 10*6/uL (4.10-5.10); RED CELL DISTRI WIDTH 12.1 % (0-14.5); WHITE BLOOD COUNT 5.4 10*3/uL (4.8-10.8)
[2019-08-25 13:53] LABS: ALBUMIN 3.2 gm/dl (3.1-4.5); ALKALINE PHOSPHATASE 291 U/L (45-117); BUN 14 mg/dl (7-24); CHLORIDE 96 mmol/L (98-107); CREATININE 0.79 mg/dL (0.55-1.02); POTASSIUM 3.8 mmol/L (3.5-5.1); SGOT/AST 41 IU/L (3-35); SGPT/ALT 35 U/L (12-78); SODIUM 131 mmol/L (136-145); TOTAL PROTEIN 6.9 gm/dL (6.4-8.2)
[2019-08-25] MEDS ORDERED: METHOCARBAMOL500 M1 PO (15:21)
== END 2019-08-25 15:44 | disposition home or self-care (01) ==
LOC: ED 12:39
PROVIDERS: Nurse Practitioner Family
DX: T21.24XA Burn of second degree of lower back, initial encounter (principal); T14.8XXA Other injury of unspecified body region, initial encounter; E78.00 Pure hypercholesterolemia, unspecified; K21.9 Gastro-esophageal reflux disease without esophagitis; Z88.5 Allergy status to narcotic agent; Z88.8 Allergy status to other drugs, medicaments and biological substances; Z88.1 Allergy status to other antibiotic agents; Z79.899 Other long term (current) drug therapy; Z90.49 Acquired absence of other specified parts of digestive tract; Z87.891 Personal history of nicotine dependence; X58.XXXA Exposure to other specified factors, initial encounter; Y93.89 Activity, other specified; Y92.89 Other specified places as the place of occurrence of the external cause; Y99.8 Other external cause status

== ENCOUNTER → 2019-09-03 | Outpatient (CLI) | payer MEDICARE, OTHER ==
[~2019-09-03] MED LIST changes: +METHOCARBAMOL500 M1 PO
== END | disposition home or self-care (01) ==
LOC: MAMMO 08-23 13:30
DX: R92.1 Mammographic calcification found on diagnostic imaging of breast (principal); N64.4 Mastodynia

== ENCOUNTER 2019-09-13 14:54 | Inpatient (IN) | payer MEDICARE, OTHER ==
[~2019-09-13] VITALS: Ht 165.1 cm; Wt 64.7 kg
[2019-09-13 15:10] VITALS: BP 84/55
[2019-09-13 16:42] LABS: HEMATOCRIT 34.1 % (37.0-47.0); MEAN CORPUSCULAR HGB 29.2 pg (27.0-31.0); MEAN CORPUSCULAR HGB CONC 34.3 g/dl (33.0-37.0); MEAN PLATELET VOLUME 9.1 fl (9.6-12.3); PLATELET COUNT AUTOMATED 459 10*3/uL (130-400); RED BLOOD COUNT 4.01 10*6/uL (4.10-5.10); RED CELL DISTRI WIDTH 12.7 % (0-14.5); WHITE BLOOD COUNT 9.2 10*3/uL (4.8-10.8)
[2019-09-13 16:51] LABS: ALBUMIN 3.1 gm/dl (3.1-4.5); ALKALINE PHOSPHATASE 251 U/L (45-117); BUN 15 mg/dl (7-24); CHLORIDE 92 mmol/L (98-107); CREATININE 0.95 mg/dL (0.55-1.02); LIPASE 72 U/L (73-393); POTASSIUM 2.8 mmol/L (3.5-5.1); SGOT/AST 16 IU/L (3-35); SGPT/ALT 23 U/L (12-78); SODIUM 128 mmol/L (136-145)
[2019-09-13 17:08] LABS: PLATELET SUFFICIENCY HIGH (NORMAL); POLYCHROMASIA SLIGHT; STOMATOCYTE FEW; TOTAL CELLS COUNTED 100 #CELLS
--- NOTE | 2019-09-13 17:15 | NUR ---
PT REPORTS THAT HER NAUSEA HAS IMPROVED.
--- NOTE | 2019-09-13 18:14 | NUR ---
PT UP TO BATHROOM.
[2019-09-13 19:44] VITALS: BP 129/58
[2019-09-13 22:27] VITALS: BP 132/50
[2019-09-13 22:30] VITALS: BP 122/64
--- NOTE | 2019-09-13 22:30 | NUR ---
A 69, admitted to 4E, under the services of VINAYAK Smallwood MD with a diagnosis of HYPOKALEMIA. Chief complaint is ABDOMINAL PAINX1 WEEK. Patient arrived via stretcher from ER. Monitor applied. Initial assessment completed. Vital signs taken and recorded. VINAYAK SMALLWOOD MD notified of admission to the unit. Orders received. See assessment for past medical history, medications and allergies. Patient and/or family oriented to unit. Clothing/patient valuable form completed. MILIND SALAZAR
--- NOTE | 2019-09-13 23:19 | NUR ---
PATIENT TOOK OFF DRAIN DRESSING AND EMPTIED BILIARY BAG HERSELF. GAUZE AND ABD PADS PROVIDED TO COVER DRAIN AREA IT HAS YELLOW/GREEN DRAINAGE LEAKING FROM THE TUBE SITE; SITE ASYMPTOMATIC. 100 ML DARK GREEN LIQUID NOTED IN GRADUATED CYLINDER.
[2019-09-13] MEDS ORDERED: VITAMIN D3125 MC1 PO (23:32)
--- NOTE | 2019-09-13 23:38 | NUR ---
MED REC UPDATED PER PT'S LIST AND CLAIM HX
[2019-09-14] VITALS: BP 125/82
--- NOTE | 2019-09-14 01:02 | NUR ---
RESTORIL PROVIDED PER PT REQUEST FOR INSOMNIA. WILL MONITOR.
--- NOTE | 2019-09-14 02:00 | NUR ---
PATIENT SLEEPING; NO S/S DISTRESS, SNORING RESPIRATIONS ON ROOM AIR. RESTORIL EFFECTIVE. K RUN INFUSING @40 ML/HR; PATIENT TOLERATING WELL. BED IN LOWEST, LOCKED POS, CALL LIGHT WITHIN REACH.
--- NOTE | 2019-09-14 02:13 | NUR ---
DR GALLARDO NOTIFIED MED REC UPDATED. ALSO NOTIFIED K RUN IS RUNNING SLOWLY PER PT REQUEST AND IS THUS LATE ON THE EMAR. STATES ITS OK.
[2019-09-14 06:24] LABS: BASO % 0.5 % (0.0-1.0); EOS # 0.2 10*3/uL (0.0-0.4); EOS % 2.3 % (1.0-4.0); HEMATOCRIT 30.1 % (37.0-47.0); LYMPH % 27.2 % (27.0-41.0); MEAN CELL VOLUME 86.7 fl (81.0-99.0); MEAN CORPUSCULAR HGB 29.7 pg (27.0-31.0); MEAN CORPUSCULAR HGB CONC 34.2 g/dl (33.0-37.0); MEAN PLATELET VOLUME 9.4 fl (9.6-12.3); MONO # 0.7 10*3/uL (0.1-1.0); MONO % 9.9 % (3.0-9.0); NEUT # 4.4 10*3/uL (2.3-7.9); PLATELET COUNT AUTOMATED 388 10*3/uL (130-400); RED BLOOD COUNT 3.47 10*6/uL (4.10-5.10); RED CELL DISTRI WIDTH 12.7 % (0-14.5); WHITE BLOOD COUNT 7.3 10*3/uL (4.8-10.8)
[2019-09-14 06:38] LABS: ALBUMIN 2.7 gm/dl (3.1-4.5); ALKALINE PHOSPHATASE 213 U/L (45-117); BUN 11 mg/dl (7-24); CHLORIDE 99 mmol/L (98-107); CREATININE 0.69 mg/dL (0.55-1.02); POTASSIUM 3.3 mmol/L (3.5-5.1); SGOT/AST 13 IU/L (3-35); SGPT/ALT 20 U/L (12-78); SODIUM 132 mmol/L (136-145); TOTAL PROTEIN 6.1 gm/dL (6.4-8.2)
--- NOTE | 2019-09-14 09:00 | NUR ---
Conveyor Feeder in to talk to patient. Patient states lives at home with alone. There are 14 steps in the home. Physician: aleshia [facility] Home health services: none Patient's level of ADLs: INDEPENDENT Patient has working utilities: all working DME: stairlift Follow-up physician's appointment after d/c: patient prefers to make her own follow up appointment Does patient want to access PORTAL?: no Discharge plan discussed with patient, she states she lives at home alone, she is independent in adls and ambulation, drives, she states she has a stairlift in her [facility] , she states she uses it to carry laundry upstairs. she states she will return home when medically stable and denies any home needs at this time, case management will follow. BRIAN ALONZO
[2019-09-14 09:39] LABS: VITAMIN D, 25-HYDROXY 48.7 ng/mL (30-100)
[2019-09-14 12:00] VITALS: BP 113/68
--- NOTE | 2019-09-14 15:22 | NUR ---
Discharge instructions reviewed with patient/family. Patient receptive and verbalizes understanding. Follow-up care arranged. Written instructions given to patient/family. CHRISTINE OCHOA
== END 2019-09-14 15:22 | disposition home or self-care (01) | DRG 392 ==
LOC: ED 14:54 → 4E 20:45 → EDHOLD 20:45 → 4E 21:39
PROVIDERS: Internal Medicine; Physician Assistant; ADMIT Internal Medicine
DX: R10.9 Unspecified abdominal pain (principal); R65.10 Systemic inflammatory response syndrome (SIRS) of non-infectious origin without acute organ dysfunction; E87.1 Hypo-osmolality and hyponatremia; K83.8 Other specified diseases of biliary tract; E87.6 Hypokalemia; I95.9 Hypotension, unspecified; D47.3 Essential (hemorrhagic) thrombocythemia; E87.8 Other disorders of electrolyte and fluid balance, not elsewhere classified; R73.9 Hyperglycemia, unspecified; F32.9 Major depressive disorder, single episode, unspecified; F41.0 Panic disorder [episodic paroxysmal anxiety]; E78.5 Hyperlipidemia, unspecified; D64.9 Anemia, unspecified; E55.9 Vitamin D deficiency, unspecified; Z90.49 Acquired absence of other specified parts of digestive tract; Z87.891 Personal history of nicotine dependence; Z88.6 Allergy status to analgesic agent; Z88.1 Allergy status to other antibiotic agents

== ENCOUNTER 2019-12-16 10:48 | Emergency (ER) | payer MEDICARE, OTHER ==
[~2019-12-16] VITALS: Ht 165.1 cm; Wt 61.2 kg
[~2019-12-16 10:48] MED LIST changes: +VITAMIN D3125 MC1 PO
[2019-12-16 12:32] LABS: BASO # 0.1 10*3/uL (0.0-0.1); BASO % 0.5 % (0.0-1.0); EOS # 0.5 10*3/uL (0.0-0.4); EOS % 4.8 % (1.0-4.0); HEMATOCRIT 37.9 % (37.0-47.0); LYMPH # 1.8 10*3/uL (1.3-4.4); LYMPH % 17.2 % (27.0-41.0); MEAN CELL VOLUME 87.7 fl (81.0-99.0); MEAN CORPUSCULAR HGB 30.6 pg (27.0-31.0); MEAN CORPUSCULAR HGB CONC 34.8 g/dl (33.0-37.0); MEAN PLATELET VOLUME 9.5 fl (9.6-12.3); MONO # 0.9 10*3/uL (0.1-1.0); MONO % 8.4 % (3.0-9.0); NEUT % 68.6 % (47.0-73.0); PLATELET COUNT AUTOMATED 394 10*3/uL (130-400); RED BLOOD COUNT 4.32 10*6/uL (4.10-5.10); RED CELL DISTRI WIDTH 11.3 % (0-14.5); WHITE BLOOD COUNT 10.2 10*3/uL (4.8-10.8)
[2019-12-16 12:43] LABS: ACT PARTIAL THROMBO TIME 28.1 SECONDS (20.0-32.1); INTERNATIONAL NORM RATIO 1.1 (2.0-3.5)
[2019-12-16 12:47] LABS: ALBUMIN 3.2 gm/dl (3.1-4.5); ALKALINE PHOSPHATASE 201 U/L (45-117); BUN 14 mg/dl (7-24); CHLORIDE 90 mmol/L (98-107); CREATININE 0.83 mg/dL (0.55-1.02); LIPASE 79 U/L (73-393); POTASSIUM 2.7 mmol/L (3.5-5.1); SGOT/AST 13 IU/L (3-35); SGPT/ALT 16 U/L (12-78); SODIUM 125 mmol/L (136-145); TROPONIN I < 0.015 ng/ml (<0.045)
[2019-12-16 16:27] LABS: BILIRUBIN NEGATIVE; CLARITY CLEAR (CLEAR); COLOR YELLOW (YELLOW); GLUCOSE NEGATIVE; KETONE NEGATIVE
[2019-12-16 16:28] LABS: BLOOD NEGATIVE (NEGATIVE); LEUKO ESTERASE TRACE (NEGATIVE); NITRITE NEGATIVE (NEGATIVE); PH 6.5 (4.5-8.0); UROBILINOGEN 0.2 E.U./dl (0.0-1.0)
[2019-12-16 16:33] LABS: BACTERIA 1+; RBC 0-2 rbc/hpf (0-2)
[2019-12-16 17:05] LABS: BUN 12 mg/dl (7-24); CHLORIDE 94 mmol/L (98-107); CREATININE 0.81 mg/dL (0.55-1.02); POTASSIUM 3.1 mmol/L (3.5-5.1); SODIUM 128 mmol/L (136-145)
[2019-12-16] MEDS ORDERED: POTASSIUM CHLO20 ME3 PO (18:13)
== END 2019-12-16 18:20 | disposition home or self-care (01) ==
LOC: ED 10:48
PROVIDERS: Nurse Practitioner Family
DX: E87.6 Hypokalemia (principal); R11.2 Nausea with vomiting, unspecified; I10 Essential (primary) hypertension; E78.5 Hyperlipidemia, unspecified; Z88.1 Allergy status to other antibiotic agents; Z88.6 Allergy status to analgesic agent; Z88.8 Allergy status to other drugs, medicaments and biological substances; Z79.899 Other long term (current) drug therapy; Z87.891 Personal history of nicotine dependence

== ENCOUNTER 2020-06-04 11:50 | Inpatient (IN) | payer MEDICARE, OTHER ==
[~2020-06-04] VITALS: Ht 162.6 cm; Wt 54.0 kg
[~2020-06-04 11:50] MED LIST changes: +POTASSIUM CHLO20 ME3 PO
[2020-06-04 12:12] VITALS: BP 108/60
[2020-06-04 12:50] LABS: HEMATOCRIT 35.2 % (37.0-47.0); MEAN CELL VOLUME 83.6 fl (81.0-99.0); MEAN CORPUSCULAR HGB 29.9 pg (27.0-31.0); MEAN CORPUSCULAR HGB CONC 35.8 g/dl (33.0-37.0); MEAN PLATELET VOLUME 9.5 fl (9.6-12.3); PLATELET COUNT AUTOMATED 608 10*3/uL (130-400); RED BLOOD COUNT 4.21 10*6/uL (4.10-5.10); RED CELL DISTRI WIDTH 11.4 % (0-14.5); WHITE BLOOD COUNT 26.4 10*3/uL (4.8-10.8)
[2020-06-04 13:06] LABS: ALBUMIN 2.7 gm/dl (3.1-4.5); CREATININE 1.32 mg/dL (0.55-1.02); POTASSIUM 5.2 mmol/L (3.5-5.1); TOTAL PROTEIN 7.9 gm/dL (6.4-8.2)
[2020-06-04 13:12] LABS: PLATELET SUFFICIENCY NORMAL (NORMAL); TOTAL CELLS COUNTED 100 #CELLS
[2020-06-04 14:58] LABS: BILIRUBIN Negative (Negative); BLOOD Trace-Lysed (Negative); CLARITY Cloudy (Clear); COLOR Dark Yellow (Yellow); GLUCOSE Negative (Negative); KETONE Negative (Negative); LEUKO ESTERASE 3+ (Negative); NITRITE Negative (Negative); PH 5.5 (4.5-8.0); SPECIFIC GRAVITY 1.015 (1.001-1.030); UROBILINOGEN 0.2 E.U./dl (0.0-1.0)
[2020-06-04 15:14] LABS: BACTERIA 3+; EPITHELIAL CELLS 31-40; WBC 21-30 wbc/hpf (0-5)
[2020-06-04 16:00] VITALS: BP 115/64
[2020-06-04] MEDS ORDERED: CALCIUM 600 +1 EAC2 PO (16:35)
[2020-06-04 17:16] LABS: BUN 29 mg/dl (7-24); CHLORIDE 82 mmol/L (98-107); CREATININE 0.92 mg/dL (0.55-1.02)
[2020-06-04 17:30] LABS: SODIUM 113 mmol/L (136-145)
[2020-06-04 20:00] VITALS: BP 110/60
[2020-06-04 21:30] LABS: BUN 27 mg/dl (7-24); CHLORIDE 82 mmol/L (98-107); CREATININE 0.81 mg/dL (0.55-1.02); POTASSIUM 4.9 mmol/L (3.5-5.1)
[2020-06-04 21:32] LABS: SODIUM 114 mmol/L (136-145)
[2020-06-05] VITALS: BP 108/61
[2020-06-05 04:30] VITALS: BP 93/57
[2020-06-05 06:19] LABS: HEMATOCRIT 33.3 % (37.0-47.0); MEAN CELL VOLUME 84.7 fl (81.0-99.0); MEAN CORPUSCULAR HGB 29.5 pg (27.0-31.0); MEAN CORPUSCULAR HGB CONC 34.8 g/dl (33.0-37.0); MEAN PLATELET VOLUME 9.7 fl (9.6-12.3); PLATELET COUNT AUTOMATED 495 10*3/uL (130-400); RED BLOOD COUNT 3.93 10*6/uL (4.10-5.10); RED CELL DISTRI WIDTH 11.3 % (0-14.5); WHITE BLOOD COUNT 24.6 10*3/uL (4.8-10.8)
[2020-06-05 06:28] LABS: ALBUMIN 2.2 gm/dl (3.1-4.5); BUN 26 mg/dl (7-24); CHLORIDE 84 mmol/L (98-107); CHOLESTEROL 132 mg/dL (<200); CREATININE 0.71 mg/dL (0.55-1.02); POTASSIUM 5.2 mmol/L (3.5-5.1); SGOT/AST 20 IU/L (3-35); SGPT/ALT 21 U/L (12-78); TOTAL PROTEIN 6.5 gm/dL (6.4-8.2); TRIGLYCERIDES 61 mg/dl (<150); VLDL CHOLESTEROL 12 mg/dL (6-40)
[2020-06-05 06:31] LABS: ALKALINE PHOSPHATASE 258 U/L (45-117); HDL CHOLESTEROL 50 mg/dl (40-60); LDL CHOLESTEROL 70 mg/dL (9-159)
[2020-06-05 06:39] LABS: SODIUM 116 mmol/L (136-145)
[2020-06-05 07:34] LABS: VITAMIN D, 25-HYDROXY 21.6 ng/mL (30-100)
[2020-06-05 07:41] LABS: PLATELET SUFFICIENCY HIGH (NORMAL); TOTAL CELLS COUNTED 100 #CELLS
[2020-06-05 08:00] VITALS: BP 102/56
[2020-06-05 12:00] VITALS: BP 118/74
[2020-06-05 13:53] LABS: BUN 23 mg/dl (7-24); CHLORIDE 82 mmol/L (98-107); CREATININE 0.71 mg/dL (0.55-1.02); POTASSIUM 4.6 mmol/L (3.5-5.1)
[2020-06-05 13:55] LABS: SODIUM 115 mmol/L (136-145)
[2020-06-05 16:00] VITALS: BP 91/56
[2020-06-05 20:00] VITALS: BP 121/61
[2020-06-06] VITALS: BP 109/65
[2020-06-06 04:00] VITALS: BP 119/68
[2020-06-06 06:11] LABS: BUN 22 mg/dl (7-24); CHLORIDE 87 mmol/L (98-107); CREATININE 0.69 mg/dL (0.55-1.02); POTASSIUM 4.3 mmol/L (3.5-5.1); SODIUM 121 mmol/L (136-145)
[2020-06-06 06:26] LABS: BASO % 0.1 % (0.0-1.0); HEMATOCRIT 33.7 % (37.0-47.0); LYMPH # 1.1 10*3/uL (1.3-4.4); LYMPH % 6.9 % (27.0-41.0); MEAN CELL VOLUME 86.2 fl (81.0-99.0); MEAN CORPUSCULAR HGB 29.2 pg (27.0-31.0); MEAN CORPUSCULAR HGB CONC 33.8 g/dl (33.0-37.0); MEAN PLATELET VOLUME 9.9 fl (9.6-12.3); MONO # 0.8 10*3/uL (0.1-1.0); MONO % 5.5 % (3.0-9.0); NEUT # 13.2 10*3/uL (2.3-7.9); PLATELET COUNT AUTOMATED 539 10*3/uL (130-400); RED BLOOD COUNT 3.91 10*6/uL (4.10-5.10); RED CELL DISTRI WIDTH 11.5 % (0-14.5); WHITE BLOOD COUNT 15.2 10*3/uL (4.8-10.8)
[2020-06-06 08:00] VITALS: BP 114/64
[2020-06-06 12:00] VITALS: BP 107/71
[2020-06-06 15:15] LABS: BUN 21 mg/dl (7-24); CHLORIDE 86 mmol/L (98-107); CREATININE 0.67 mg/dL (0.55-1.02); POTASSIUM 4.1 mmol/L (3.5-5.1); SODIUM 121 mmol/L (136-145)
[2020-06-06 16:00] VITALS: BP 101/60
[2020-06-06 17:07] LABS: BILIRUBIN Negative (Negative); BLOOD 1+ (Negative); CLARITY Cloudy (Clear); COLOR Yellow (Yellow); GLUCOSE Negative (Negative); KETONE Negative (Negative); LEUKO ESTERASE 2+ (Negative); NITRITE Negative (Negative); UROBILINOGEN 0.2 E.U./dl (0.0-1.0)
[2020-06-06 17:25] LABS: BACTERIA 4+; MUCOUS 1+; WBC 21-30 wbc/hpf (0-5)
[2020-06-06 20:00] VITALS: BP 120/78; BP 120/98
[2020-06-07] VITALS: BP 130/61
[2020-06-07 07:23] LABS: BASO % 0.2 % (0.0-1.0); HEMATOCRIT 33.7 % (37.0-47.0); LYMPH # 1.5 10*3/uL (1.3-4.4); LYMPH % 17.5 % (27.0-41.0); MEAN CELL VOLUME 87.8 fl (81.0-99.0); MEAN CORPUSCULAR HGB 29.2 pg (27.0-31.0); MEAN CORPUSCULAR HGB CONC 33.2 g/dl (33.0-37.0); MEAN PLATELET VOLUME 9.4 fl (9.6-12.3); MONO # 0.7 10*3/uL (0.1-1.0); MONO % 8.1 % (3.0-9.0); NEUT # 6.4 10*3/uL (2.3-7.9); NEUT % 73.5 % (47.0-73.0); PLATELET COUNT AUTOMATED 534 10*3/uL (130-400); RED BLOOD COUNT 3.84 10*6/uL (4.10-5.10); RED CELL DISTRI WIDTH 11.8 % (0-14.5); WHITE BLOOD COUNT 8.8 10*3/uL (4.8-10.8)
[2020-06-07 07:39] LABS: BUN 20 mg/dl (7-24); CHLORIDE 94 mmol/L (98-107); CREATININE 0.53 mg/dL (0.55-1.02); POTASSIUM 4.1 mmol/L (3.5-5.1); SODIUM 125 mmol/L (136-145)
[2020-06-07 08:00] VITALS: BP 104/44
[2020-06-07 12:00] VITALS: BP 106/50
[2020-06-07 16:00] VITALS: BP 110/60
[2020-06-07 20:00] VITALS: BP 139/62
[2020-06-08 00:43] VITALS: BP 124/56
[2020-06-08 06:28] LABS: BASO % 0.1 % (0.0-1.0); HEMATOCRIT 32.1 % (37.0-47.0); LYMPH # 1.5 10*3/uL (1.3-4.4); LYMPH % 20.8 % (27.0-41.0); MEAN CELL VOLUME 87.9 fl (81.0-99.0); MEAN PLATELET VOLUME 9.1 fl (9.6-12.3); MONO # 0.9 10*3/uL (0.1-1.0); NEUT # 4.9 10*3/uL (2.3-7.9); NEUT % 66.2 % (47.0-73.0); PLATELET COUNT AUTOMATED 522 10*3/uL (130-400); RED BLOOD COUNT 3.65 10*6/uL (4.10-5.10); WHITE BLOOD COUNT 7.4 10*3/uL (4.8-10.8)
[2020-06-08 06:35] LABS: BUN 17 mg/dl (7-24); CHLORIDE 98 mmol/L (98-107); CREATININE 0.56 mg/dL (0.55-1.02); POTASSIUM 3.5 mmol/L (3.5-5.1); SODIUM 129 mmol/L (136-145)
[2020-06-08 08:00] VITALS: BP 104/71
[2020-06-08 12:00] VITALS: BP 128/57
[2020-06-08 16:00] VITALS: BP 129/55
[2020-06-08 20:00] VITALS: BP 136/60
[2020-06-09] VITALS: BP 119/68
[2020-06-09 07:07] LABS: BASO % 0.3 % (0.0-1.0); HEMATOCRIT 31.5 % (37.0-47.0); LYMPH # 1.9 10*3/uL (1.3-4.4); LYMPH % 25.8 % (27.0-41.0); MEAN CORPUSCULAR HGB 29.9 pg (27.0-31.0); MEAN CORPUSCULAR HGB CONC 33.7 g/dl (33.0-37.0); MEAN PLATELET VOLUME 8.8 fl (9.6-12.3); MONO # 0.8 10*3/uL (0.1-1.0); MONO % 10.8 % (3.0-9.0); NEUT # 4.7 10*3/uL (2.3-7.9); NEUT % 61.9 % (47.0-73.0); PLATELET COUNT AUTOMATED 495 10*3/uL (130-400); RED BLOOD COUNT 3.54 10*6/uL (4.10-5.10); RED CELL DISTRI WIDTH 12.2 % (0-14.5); WHITE BLOOD COUNT 7.5 10*3/uL (4.8-10.8)
[2020-06-09 07:32] LABS: BUN 17 mg/dl (7-24); CHLORIDE 102 mmol/L (98-107); CREATININE 0.47 mg/dL (0.55-1.02); POTASSIUM 3.3 mmol/L (3.5-5.1); SODIUM 132 mmol/L (136-145)
[2020-06-09 08:00] VITALS: BP 120/62
[2020-06-09 12:00] VITALS: BP 130/64
[2020-06-09 16:05] VITALS: BP 135/50
[2020-06-09 20:00] VITALS: BP 122/58
[2020-06-10] VITALS: BP 114/53
[2020-06-10 06:25] LABS: BUN 11 mg/dl (7-24); CHLORIDE 104 mmol/L (98-107); CREATININE 0.44 mg/dL (0.55-1.02); POTASSIUM 3.8 mmol/L (3.5-5.1); SODIUM 136 mmol/L (136-145)
[2020-06-10 08:00] VITALS: BP 108/50
[2020-06-10] MEDS ORDERED: PHARMASSURE FO0.4 MG PO (10:35)
[2020-06-10 12:00] VITALS: BP 124/79
[2020-06-10 16:00] VITALS: BP 125/69
== END 2020-06-10 19:28 | disposition short-term general hospital (02) | DRG 682 ==
LOC: ED 11:50 → ICCU 14:43 → EDHOLD 14:43 → 4E 14:43 → ICCU 14:56 → 4E 06-06 18:02
PROVIDERS: Internal Medicine; Internal Medicine Nephrology; Nurse Practitioner; ADMIT Internal Medicine; ATTEND Internal Medicine
DX: N17.0 Acute kidney failure with tubular necrosis (principal); E43 Unspecified severe protein-calorie malnutrition; E87.1 Hypo-osmolality and hyponatremia; N39.0 Urinary tract infection, site not specified; E86.0 Dehydration; F41.0 Panic disorder [episodic paroxysmal anxiety]; F32.9 Major depressive disorder, single episode, unspecified; E53.8 Deficiency of other specified B group vitamins; E78.5 Hyperlipidemia, unspecified; E87.5 Hyperkalemia; D47.3 Essential (hemorrhagic) thrombocythemia; D72.829 Elevated white blood cell count, unspecified; E87.8 Other disorders of electrolyte and fluid balance, not elsewhere classified; D64.9 Anemia, unspecified; E55.9 Vitamin D deficiency, unspecified; Z88.7 Allergy status to serum and vaccine; Z83.3 Family history of diabetes mellitus; Z68.20 Body mass index [BMI] 20.0-20.9, adult; Z88.8 Allergy status to other drugs, medicaments and biological substances; Z87.891 Personal history of nicotine dependence; Z88.6 Allergy status to analgesic agent; Z88.1 Allergy status to other antibiotic agents

== ENCOUNTER → 2020-11-17 | Outpatient (CLI) | payer MEDICARE, OTHER ==
[~2020-11-17] MED LIST changes: +CALCIUM 600 +1 EAC2 PO; +PHARMASSURE FO0.4 MG PO
== END | disposition home or self-care (01) ==
LOC: RAD 17:16
PROVIDERS: ATTEND Internal Medicine
DX: R07.9 Chest pain, unspecified (principal)

== ENCOUNTER → 2020-11-25 | Outpatient (CLI) | payer MEDICARE, OTHER | END | disposition home or self-care (01) | LOC: RAD 14:46 | PROVIDERS: ATTEND Internal Medicine | DX: Z12.31 Encounter for screening mammogram for malignant neoplasm of breast (principal); N64.89 Other specified disorders of breast ==

== ENCOUNTER → 2020-12-18 | Outpatient (CLI) | payer MEDICARE, OTHER | END | disposition home or self-care (01) | LOC: RAD 15:25 | PROVIDERS: ATTEND Internal Medicine | DX: M47.812 Spondylosis without myelopathy or radiculopathy, cervical region (principal) ==

== ENCOUNTER → 2020-12-25 | Outpatient (CLI) | payer MEDICARE, OTHER | END | disposition home or self-care (01) | LOC: RAD 02:03 | PROVIDERS: ATTEND Internal Medicine | DX: M81.0 Age-related osteoporosis without current pathological fracture (principal) ==

== ENCOUNTER → 2021-01-12 | Outpatient (CLI) | payer MEDICARE, OTHER | END | disposition home or self-care (01) | LOC: RAD 14:18 | PROVIDERS: ATTEND Internal Medicine Nephrology | DX: J44.9 Chronic obstructive pulmonary disease, unspecified (principal) ==

== ENCOUNTER → 2021-03-02 | Outpatient (CLI) | payer MEDICARE, OTHER | END | disposition home or self-care (01) | LOC: RAD 14:23 | PROVIDERS: ATTEND Internal Medicine | DX: J44.9 Chronic obstructive pulmonary disease, unspecified (principal) ==

== ENCOUNTER → 2021-03-06 | Emergency (ER) | payer MEDICARE, OTHER | LOC: ED 21:00 | DX: Z53.21 Procedure and treatment not carried out due to patient leaving prior to being seen by health care provider (principal) ==

== ENCOUNTER 2021-07-11 17:12 | Emergency (ER) | payer MEDICARE, OTHER ==
[~2021-07-11] VITALS: Ht 165.1 cm; Wt 56.7 kg
== END 2021-07-11 18:15 | disposition home or self-care (01) ==
LOC: ED 17:12
DX: S99.191A Other physeal fracture of right metatarsal, initial encounter for closed fracture (principal); Z88.1 Allergy status to other antibiotic agents; Z88.6 Allergy status to analgesic agent; Z79.899 Other long term (current) drug therapy; Z90.89 Acquired absence of other organs; Z90.49 Acquired absence of other specified parts of digestive tract; Z87.891 Personal history of nicotine dependence; W01.0XXA Fall on same level from slipping, tripping and stumbling without subsequent striking against object, initial encounter; Y93.89 Activity, other specified; Y92.89 Other specified places as the place of occurrence of the external cause; Y99.8 Other external cause status

== ENCOUNTER → 2021-10-20 | Outpatient (CLI) | payer MEDICARE, OTHER | END | disposition home or self-care (01) | LOC: CARD 10:49 | PROVIDERS: ATTEND Internal Medicine | DX: R00.0 Tachycardia, unspecified (principal); I77.89 Other specified disorders of arteries and arterioles ==